=== PATIENT | male | born 1940 | race Caucasian/White ===

== ENCOUNTER 2017-09-12 17:56 | Emergency (ER) | payer OTHER ==
[2017-09-12 18:02] VITALS: BMI 25.2
[2017-09-12 18:17] VITALS: BP 124/84; PULSE 82; TEMP 98
--- NOTE | 2017-09-12 18:25 | PDOC ---
History of Present Illness - General Chief Complaint: RX Refill Stated Complaint: need rx refill Time Seen by Provider: 09/12/17 17:58 - History of Present Illness Initial Comments: 09/12/17 18:20 76 M with h/o HTN, afib on metoprolol and coumadin, AVR and MVR presenting to ED for prescription refill. Pt states that he has 2 tablets of his metoprolol left and will not be able to get a refill until Thursday (3 days from now) because Thursday is a holiday. Pt denies any complaints. States he takes metoprolol 25mg BID. States he still has all his other medications. Past History - Past Medical History Allergies/Adverse Reactions: Allergies Allergy/AdvReac Type Severity Reaction Status Date / Time Penicillins Allergy Severe mouth, Verified 09/12/17 17:57 tongue swelling Sulfa (Sulfonamide Allergy Intermediate rash Verified 09/12/17 17:57 Antibiotics) Home Medications: Ambulatory Orders Warfarin Sodium [Coumadin] 5 mg PO ASDIR tablet 04/25/16 Furosemide [Lasix] 40 mg PO Q48H tablet 03/18/17 Atorvastatin Ca [Lipitor] 40 mg PO HS 09/12/17 Metoprolol Succinate [Toprol Xl] 25 mg PO BID 09/12/17 Metoprolol Succinate [Toprol Xl] 25 mg PO BID #14 tab.er.24h 09/12/17 Cardiac Disorders: Yes COPD: No HTN: Yes Hypercholesterolemia: Yes - Surgical History Cardiac Surgery: Yes - Suicide/Smoking/Psychosocial Hx Smoking History: Never smoked Hx Alcohol Use: No Drug/Substance Use Hx: No Substance Use Type: None Review of Systems - Review of Systems Comments:: 09/12/17 18:21 "GENERAL/CONSTITUTIONAL: No fever or chills. No weakness. HEAD, EYES, EARS, NOSE AND THROAT: No change in vision. No ear pain or discharge. No sore throat. CARDIOVASCULAR: No chest pain or shortness of breath. RESPIRATORY: No cough, wheezing, or hemoptysis. GASTROINTESTINAL: No nausea, vomiting, diarrhea or constipation. GENITOURINARY: No dysuria, frequency, or change in urination. MUSCULOSKELETAL: No joint or muscle swelling or pain. No neck or back pain. SKIN: No rash NEUROLOGIC: No headache, vertigo, loss of consciousness, or change in strength/ sensation. ENDOCRINE: No increased thirst. No abnormal weight change. HEMATOLOGIC/LYMPHATIC: No anemia, easy bleeding, or history of blood clots. ALLERGIC/IMMUNOLOGIC: No hives or skin allergy. " *Physical Exam - Vital Signs Last Vital Signs Temp Pulse Resp BP Pulse Ox 98 F 82 18 124/84 100 09/12/17 17:57 18 17:57 18 17:57 18 17:57 09/12/17 17:57 - Physical Exam Comments: 09/12/17 18:21 "GENERAL: Awake, alert, and fully oriented, in no acute distress HEAD: No signs of trauma EYES: PERRLA, EOMI, sclera anicteric, conjunctiva clear ENT: Auricles normal inspection, hearing grossly normal, nares patent, oropharynx clear without exudates. Moist mucosa NECK: Nontender, no stepoffs, Normal ROM, supple, no lymphadenopathy, JVD, or masses LUNGS: Breath sounds equal, clear to auscultation bilaterally. No wheezes, and no crackles HEART: Regular rate and rhythm, normal S1 and S2, no murmurs, rubs or gallops ABDOMEN: Soft, nontender, normoactive bowel sounds. No guarding, no rebound. No masses EXTREMITIES: Normal range of motion, no edema. No clubbing or cyanosis. No cords, erythema, or tenderness NEUROLOGICAL: Cranial nerves II through XII intact. 5/5 strength and sensation in all extremities, Normal speech, normal gait, normal cerebellar function SKIN: Warm, Dry, normal turgor, no rashes or lesions noted. " Medical Decision Making - Medical Decision Making 09/12/17 18:21 76 M here for prescription refill of metoprolol 25mg BID. No complaints at this time. 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 Continue taking it as prescribed. Follow up with your primary doctor this Thursday. - Post Discharge Activity - Attestations Physician Attestion: 09/12/17 18:25 I, Dr. Aydin Holm MD, attest that this document has been prepared under my direction and personally reviewed by me in its entirety. I further attest, that it accurately reflects all work, treatment, procedures and medical decision -making performed by me.
== END 2017-09-12 18:50 | disposition home or self-care (01) ==
LOC: FER 17:56
DX: Z76.0 Encounter for issue of repeat prescription (principal); I10 Essential (primary) hypertension; I48.91 Unspecified atrial fibrillation; E78.00 Pure hypercholesterolemia, unspecified; Z79.01 Long term (current) use of anticoagulants; Z95.2 Presence of prosthetic heart valve; Z88.0 Allergy status to penicillin; Z88.2 Allergy status to sulfonamides
CPT/HCPCS: 99281-25

== ENCOUNTER 2017-10-23 06:13 | Day surgery (SDC) | payer OTHER ==
[2017-10-22 11:45] VITALS: BMI 25.4
[2017-10-23] MEDS ORDERED: MIDAZOLAM HCL 2 MG/2 ML SINGLE DOSE VIAL ONE (07:20)
[2017-10-23] MEDS ORDERED: PROPOFOL 20 ML ONE (07:20)
[2017-10-23] MEDS ORDERED: ACETAMINOPHEN 1000 MG/100 ML VIAL (NON FORMULARY) IVPB ONE ×2 (07:35→09:00)
--- NOTE | 2017-10-23 07:42 | HP ---
History & Physical Update - History History: No Change - Physical Physical: No Change - Assessment Assessment: No Change - Plan Plan: No Change
[2017-10-23] MEDS ORDERED: DEXTROSE 5%-0.45% SALINE 1,000 ML IV SCH (07:45)
[2017-10-23] MEDS ORDERED: SUCCINYLCHOLINE CHLORIDE 200 MG/10 ML VIAL ONE (07:54)
[2017-10-23] MEDS ORDERED: CLINDAMYCIN 600 MG PREMIX BAG IVPB ONE (08:05)
[2017-10-23] MEDS ORDERED: CLINDAMYCIN PHOSPHATE 600 MG/4 ML VIAL ONE (08:09)
[2017-10-23] MEDS ORDERED: DEXAMETHASONE SOD PHOSPHATE 4 MG/1 ML VIAL ONE (08:09)
[2017-10-23] MEDS ORDERED: ePHEDrine SULFATE 50 MG/1 ML AMPULE ONE (08:15)
[2017-10-23] MEDS ORDERED: oxyCODONE HCL 5 MG TABLET PO PRN (08:39)
[2017-10-23] MEDS ORDERED: ONDANSETRON 4 MG/2 ML VIAL IVPUSH PRN (08:39)
[2017-10-23] MEDS ORDERED: SODIUM CHLORIDE 1,000 ML IV SCH (08:45)
[2017-10-23] MEDS ORDERED: ACETAMINOPHEN INJECTION 100 ML IVPB ONE (09:06)
[2017-10-23 14:45] VITALS: TEMP 97.8
[2017-10-23 14:49] VITALS: PULSE 78
[2017-10-23 14:58] VITALS: BP 110/60
--- NOTE | 2017-10-24 10:50 | OP ---
DATE OF OPERATION: 10/23/2017 PREOPERATIVE DIAGNOSES: Bladder stone and prostate cancer. POSTOPERATIVE DIAGNOSES: Bladder stone and prostate cancer. PROCEDURE: Cystoscopy, laser lithotripsy of large bladder stone, approximately 4 cm in size. ANESTHESIA: General. PREOPERATIVE INDICATIONS: The patient is a 77-year-old male with history of prostate cancer, had a radical prostatectomy a couple of years ago. He came to the office complaining of slow urinary stream. Cystoscopy revealed a large stone at the bladder neck. He comes to the OR today for lithotripsy of bladder stone. The patient was unable to stop his anticoagulation due to cardiac issues. He is warned that there is a high risk of hematuria postoperatively because of this. OPERATION: The patient was brought to the OR, placed on the table in the supine position, given general anesthesia and IV antibiotics, and placed in the modified lithotomy position. The groins were prepped and draped sterilely. Timeout was performed. Cystoscopy was performed. The distal urethra appeared to be unremarkable. The urinary sphincter was seen. the surgically absent prostatic fossa. Adherent to the bladder neck was a large stone. Stone could not be moved. Using a holmium laser, the stone began to be broken up. As this happened, the stone became dislodged and was able to be pushed completely back into the bladder. It appeared to measure approximately 4 cm in size. The stone was broken up into small pieces that were irrigated out with the holmium laser fiber. No bleeding was seen. The bladder itself otherwise appeared to be unremarkable. The bladder neck appeared to be intact and open. A Joseph catheter was left in place. The patient was woken up. Lizette [id number]
== END 2017-10-23 14:30 | disposition home or self-care (01) ==
LOC: JASU-SURG 06:13
PROVIDERS: ATTEND Urology
PROC: 0TCB8ZZ Extirpation of Matter from Bladder, Via Natural or Artificial Opening Endoscopic (ICD-10-PCS; principal; 2017-10-23 07:30)
DX: N21.0 Calculus in bladder (principal); Z85.46 Personal history of malignant neoplasm of prostate
CPT/HCPCS: 94760; J0131

== ENCOUNTER 2017-10-25 01:22 | Emergency (ER) | payer OTHER ==
--- NOTE | 2017-10-25 01:34 | PDOC ---
History of Present Illness - General Chief Complaint: Urinary Catheter Problem Stated Complaint: NEED CATHTER REMOVED Time Seen by Provider: 10/25/17 01:33 History Source: Patient Exam Limitations: No Limitations - History of Present Illness Initial Comments: 10/25/17 02:08 77-year-old male history of atrial fibrillation hypertension hyperlipidemia status post prostatectomy with ureteral and urethral stones who had lithotripsy done yesterday and subsequent had an indwelling bladder catheter here because he is having difficulty with drainage of the catheter. States that he has had urine flow coming around the catheter was on Coumadin prior to the procedure and subsequent had hematuria which is why the catheter was left in place since then the urine is now [place] and the bleeding is subsiding, no fever or chills no abdominal pain no flank pain. Discussed the problem with his urologist who recommended that he come to the ER to have the Mcdonald catheter DC'd. Past History - Past Medical History Allergies/Adverse Reactions: Allergies Allergy/AdvReac Type Severity Reaction Status Date / Time Penicillins Allergy Severe mouth, Verified 09/12/17 17:57 tongue swelling Sulfa (Sulfonamide Allergy Intermediate rash Verified 09/12/17 17:57 Antibiotics) Home Medications: Ambulatory Orders Warfarin Sodium [Coumadin] 5 mg PO ASDIR tablet 04/25/16 Furosemide [Lasix] 40 mg PO Q48H tablet 03/18/17 Atorvastatin Ca [Lipitor] 40 mg PO HS 09/12/17 Metoprolol Succinate [Toprol Xl] 25 mg PO BID #14 tab.er.24h 09/12/17 Potassium 20 meq PO ASDIR 10/22/17 Ropinirole HCl [Requip] 5 mg PO HS 10/22/17 Clindamycin [Cleocin -] 300 mg PO TID #9 capsule 10/23/17 Anemia: No Asthma: No Cancer: Yes (JAW CANCER RX WITH RADIATION) Cardiac Disorders: Yes (ANGINA-4 STENTS [id number]-VALVE REPAIRS) CVA: No COPD: No CHF: No Dementia: No Diabetes: No (PRE-DIABETIC) GI Disorders: No Disorders: Yes (BLADDER STONE) HTN: Yes Hypercholesterolemia: Yes Liver Disease: No Seizures: No Thyroid Disease: No - Surgical History Abdominal Surgery: Yes Appendectomy: Yes Cardiac Surgery: Yes (2 VALVES REPLACED-1 VALVE REPAIRED 2016) Cholecystectomy: No Lung Surgery: No Neurologic Surgery: No Orthopedic Surgery: No - Suicide/Smoking/Psychosocial Hx Smoking History: Never smoked Hx Alcohol Use: No Drug/Substance Use Hx: No Substance Use Type: None Hx Substance Use Treatment: (RECOVERING 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 No: Dysuria, Discharge Integumentary: No: Bruising Neurological: No: Headache All Other Systems: Reviewed and Negative *Physical Exam - Physical Exam HEENT: positive: Normal ENT Inspection Neck: positive: Trachea midline Respiratory/Chest: positive: Lungs Clear, Normal Breath Sounds. negative: Chest Tender, Respiratory Distress Cardiovascular: positive: Regular Rhythm, Regular Rate, S1, S2 Gastrointestinal/Abdominal: positive: Normal Bowel Sounds, Flat, Soft. negative : Tender Male Genitalia: positive: normal genitalia, hematuria, other (cathetar in place) Musculoskeletal: positive: Normal Inspection. negative: CVA Tenderness Extremity: positive: Normal Capillary Refill Integumentary: positive: Normal Color, Dry, Warm Neurologic: positive: Fully Oriented, Alert, Normal Mood/Affect Medical Decision Making - Medical Decision Making 10/25/17 02:11 plan dc cathetar, dc home. follow up [facility] urologist. *DC/Admit/Observation/Transfer Diagnosis at time of Disposition: Mcdonald catheter problem - Discharge Dispostion Disposition: HOME Condition at time of disposition: Improved - Referrals Referrals: Kristian Root MD [Primary Care Provider] - Armando Mota MD [Staff Physician] - - Patient Instructions Printed Discharge Instructions: DI for Laser Lithotripsy Additional Instructions: you should follow up [facility] DR. Singh. return for inability to urinate, fever, chills or any concerns. - Post Discharge Activity
[2017-10-25 02:23] VITALS: BP 122/70; PULSE 75; TEMP 97.6; BMI 25.1
== END 2017-10-25 02:26 | disposition home or self-care (01) ==
LOC: FER 01:22
DX: T83.038A Leakage of other urinary catheter, initial encounter (principal); I10 Essential (primary) hypertension; E78.5 Hyperlipidemia, unspecified
CPT/HCPCS: 99281-25

== ENCOUNTER 2018-01-20 07:12 | Day surgery (SDC) | payer OTHER ==
[2018-01-19 14:38] VITALS: BMI 25.8
[2018-01-20] MEDS ORDERED: ACETAMINOPHEN 1000 MG/100 ML VIAL (NON FORMULARY) IVPB ONE (07:21)
[2018-01-20] MEDS ORDERED: DEXTROSE 5%-0.45% SALINE 1,000 ML IV SCH (07:30)
[2018-01-20 07:43] LABS: INR 1.24 (0.82-1.09)
[2018-01-20] MEDS ORDERED: MIDAZOLAM HCL 2 MG/2 ML SINGLE DOSE VIAL ONE (08:44)
[2018-01-20] MEDS ORDERED: SUCCINYLCHOLINE CHLORIDE 200 MG/10 ML VIAL ONE (08:53)
[2018-01-20] MEDS ORDERED: DEXAMETHASONE SOD PHOSPHATE 4 MG/1 ML VIAL ONE (09:08)
[2018-01-20] MEDS ORDERED: LIDOCAINE HCL 2% JELLY 10 ML CARTRIDGE TP ONE (09:11)
[2018-01-20] MEDS ORDERED: IBUPROFEN 800 MG/8 ML IJ IVPB SCH (11:15)
[2018-01-20 13:08] VITALS: TEMP 97.6
[2018-01-20 13:10] VITALS: BP 100/60; PULSE 50
--- NOTE | 2018-02-19 09:39 | OP ---
DATE OF OPERATION: 01/20/2018 PREOPERATIVE DIAGNOSIS: Prostate cancer, bladder neck contracture, urethral and bladder stones. POSTOPERATIVE DIAGNOSIS: Prostate cancer, bladder neck contracture, urethral and bladder stones. PROCEDURE PERFORMED: Cystoscopy, laser lithotripsy of bladder stones (large). SURGEON: Armando Mota M.D. ESTIMATED BLOOD LOSS: Minimal. DRAINS: Joseph catheter. INDICATIONS: The patient has a history of prostate cancer which was treated with radical prostatectomy, followed by salvage treatment. He has been suffering from incontinence and urinary retention. Previously he was seen to have his urethra obliterated with stones. He had a previous procedure and improved, but now has recurrent symptoms. He comes to the OR. DESCRIPTION OF PROCEDURE: The patient was placed on the table in the supine position, given general anesthesia and IV antibiotics, and placed in the modified lithotomy position. The groin was prepped and draped sterilely. Cystoscopy was performed. The distal urethra appeared to be unremarkable. The sphincter was seen in what was previously the prostatic urethra. At the bladder neck there were stones and stones in the bladder itself. The stones were pushed into the bladder to open up the bladder neck. The bladder neck was incised at 5 and 7 o'clock. Using the holmium laser fiber as well, the bladder stones were broken up and irrigated out. At the end of the case, no more stones were seen. The UOs were visualized and not injured. The bladder itself also appeared to be intact, without injury, and the bladder neck was open. The scope was removed. The Joseph catheter was placed. The patient was woken up. Lizette ARREOLA/[id number]
== END 2018-01-20 12:55 | disposition home or self-care (01) ==
LOC: JASU-SURG 07:12
PROVIDERS: ATTEND Urology
PROC: 0TCB8ZZ Extirpation of Matter from Bladder, Via Natural or Artificial Opening Endoscopic (ICD-10-PCS; principal; 2018-01-20 08:30)
DX: N21.0 Calculus in bladder (principal); N21.1 Calculus in urethra; C61 Malignant neoplasm of prostate
CPT/HCPCS: 36415; 85610; 94760; J0131

== ENCOUNTER 2018-11-11 14:38 | Day surgery (SDC) | payer OTHER ==
[2018-11-11 09:23] VITALS: BMI 26.1
[2018-11-11] MEDS ORDERED: oxyCODONE HCL 5 MG TABLET PO PRN ×4 (16:10→17:15)
[2018-11-11] MEDS ORDERED: ONDANSETRON 4 MG/2 ML VIAL IVPUSH PRN ×2 (16:10→17:15)
[2018-11-11] MEDS ORDERED: LACTATED RINGERS SOLUTION 1,000 ML IV SCH ×2 (16:15→17:15)
--- NOTE | 2018-11-11 16:32 | HP ---
History & Physical Update - History History: No Change - Physical Physical: No Change - Assessment Assessment: No Change - Plan Plan: No Change
[2018-11-11] MEDS ORDERED: DEXTROSE 5%-0.45% SALINE 1,000 ML IV SCH (16:45)
[2018-11-11] MEDS ORDERED: IBUPROFEN 800 MG/8 ML IJ IVPB SCH (16:45)
[2018-11-11] MEDS ORDERED: ceFAZolin SODIUM 1 GM VIAL IVPB ONE (16:46)
[2018-11-11] MEDS ORDERED: PROPOFOL 20 ML ONE (16:47)
[2018-11-11] MEDS ORDERED: DEXAMETHASONE SOD PHOSPHATE 4 MG/1 ML VIAL ONE (16:49)
[2018-11-11] MEDS ORDERED: ACETAMINOPHEN INJECTION 100 ML IVPB ONE (17:17)
[2018-11-11] MEDS ORDERED: ACETAMINOPHEN 1000 MG/100 ML VIAL (NON FORMULARY) IVPB ONE ×2 (17:47→19:00)
[2018-11-11 19:22] VITALS: BP 136/60; TEMP 97.6
[2018-11-11 20:22] VITALS: PULSE 55
--- NOTE | 2018-11-12 14:00 | OP ---
DATE OF OPERATION: 11/11/2018 PREOPERATIVE DIAGNOSIS: Bladder stones. POSTOPERATIVE DIAGNOSIS: Bladder stones. PROCEDURE: Cystoscopy, Holmium laser fiber lithotripsy of bladder stone. ANESTHESIA: General. DRAINS: Joseph catheter. PREOPERATIVE INDICATIONS: The patient is 78-year-old male with a history of prostate cancer who underwent a radical robotic prostatectomy in the past followed by radiation therapy. He suffered from stone formation at the bladder neck ever since with obstruction at times. He now comes to the OR for laser lithotripsy of the bladder stones. DESCRIPTION OF PROCEDURE: The patient was brought to the OR. Placed on the table in the supine position. Given general anesthesia and IV antibiotics and placed in the modified lithotomy position. The groin was prepped and draped sterilely. Cystoscopy was performed, and the distal urethra appear to be normal. The sphincter mucus was seen. At the bladder neck was a large amount of stones that were obstructing the lumen. Using a 1000-micron fiber Holmium laser, the stones were broken up into small pieces. The pieces were then irrigated out using Ellik evacuator. At the end of the case, there was no bleeding and no more stones visualized. A 20-[place]oven[place] Joseph catheter was left in place. The patient was woken up. Lizette [id number]
--- NOTE | 2018-11-15 11:14 | PATH ---
Surgical Pathology Report Patient Name: SRAVANTHI TREJO [facility]. Rec. #: [id number] /Age/Gender: 1940 (Age: 78) / M Account: [id number] Location: [facility] SURGICAL Taken: 11/11/2018 Received: 11/12/2018 Reported: 11/15/2018 Physicians: Armando Mota M.D. Specimen(s) Received CALCULI Clinical History Bladder stone Final Diagnosis BLADDER STONE, EXTRACTION: CALCULI SUBMITTED FOR CHEMICAL ANALYSIS (gross only). Electronically Signed Tien Taylor M.D. Gross Description Received fresh labeled "bladder stone," is a 1.0 x 0.5 x 0.2 cm aggregate of jama, irregular to fragmented calculi. The specimen is sent for chemical analysis. 11/12/2018 saudi11/12/2018
== END 2018-11-11 20:20 | disposition home or self-care (01) ==
LOC: JASU-SURG 14:38
PROVIDERS: ATTEND Urology
PROC: 0TCB8ZZ Extirpation of Matter from Bladder, Via Natural or Artificial Opening Endoscopic (ICD-10-PCS; principal; 2018-11-11 16:00)
DX: N21.0 Calculus in bladder (principal); I10 Essential (primary) hypertension; I48.91 Unspecified atrial fibrillation; Z79.01 Long term (current) use of anticoagulants
CPT/HCPCS: 36415; 82360; 88300-TC; 94760; J0131

== ENCOUNTER 2021-09-29 13:42 | Emergency (ER) | payer OTHER ==
[2021-09-29 14:03] VITALS: BP 147/69; PULSE 73; TEMP 98; BMI 24.7
== END 2021-09-29 14:54 | disposition home or self-care (01) ==
LOC: FER 13:42
DX: I10 Essential (primary) hypertension (principal)
CPT/HCPCS: 93005; 99283-25

== ENCOUNTER 2022-04-13 23:11 | Emergency (ER) | payer OTHER ==
[2022-04-13 23:17] VITALS: BP 0/0; BMI 24.7
[2022-04-13] MEDS ORDERED: DEXAMETHASONE LIQUID 0.5 MG/5 ML PO ONE (23:43)
[2022-04-13] MEDS ORDERED: diphenhydrAMINE HCL 25 MG CAPSULE (FP) PO ONE ×2 (23:43→23:51)
[2022-04-13] MEDS ORDERED: DEXAMETHASONE SOD PHOSPHATE 10 MG/1 ML VIAL ONE (23:51)
== END 2022-04-14 00:02 | disposition home or self-care (01) ==
LOC: FER 23:11
DX: T36.95XA Adverse effect of unspecified systemic antibiotic, initial encounter (principal)
CPT/HCPCS: 99283-25

== ENCOUNTER 2022-07-10 00:17 | Emergency (ER) | payer OTHER ==
[2022-07-10 00:29] VITALS: BP 144/80; PULSE 73; RESP 18; TEMP 97.9; BMI 21.4
== END 2022-07-10 00:47 | disposition home or self-care (01) ==
LOC: FER 00:17
DX: R33.9 Retention of urine, unspecified (principal)
CPT/HCPCS: 99283-25